=== PATIENT | male | born 1980 | race Caucasian/White ===

== ENCOUNTER 2021-08-11 09:53 | Outpatient (CLI) | payer BC ==
[2021-08-11 10:52] LABS: BUN - BLOOD UREA NITROGEN 22 mg/dL (6-20); CALCIUM 9.2 mg/dL (8.5-10.3); CARBON DIOXIDE - CO2 26 mmol/L (21-32); CHLORIDE 102 mmol/L (101-111); CHOL/HDL RATIO 3.1 (<5.0); CHOLESTEROL 167 mg/dL; CREATININE 0.7 mg/dL (0.6-1.2); GFR - MDRD 126 (>89); GLUCOSE 97 mg/dL (70-100); HDL CHOLESTEROL 54 mg/dL; LDL CHOLESTEROL,CALCULATED 95 mg/dL; LDL/HDL RATIO 1.8 (<3.6); POTASSIUM 4.4 mmol/L (3.5-5.0); SODIUM 137 mmol/L (135-145); TRIGLYCERIDES 88 mg/dL; VLDL CHOLESTEROL 18 mg/dL
== END 2021-08-11 09:54 | disposition home or self-care (01) ==
LOC: LAB 09:53
PROVIDERS: ATTEND Student in an Organized Health Care Education/Training Program
DX: E78.49 Other hyperlipidemia (principal); E55.9 Vitamin D deficiency, unspecified; I10 Essential (primary) hypertension
CPT/HCPCS: 36415; 80048; 80061; 82306; 83721

== ENCOUNTER 2022-09-27 10:27 | Emergency (ER) | payer OTHER, BC ==
[2022-09-27 10:49] VITALS: BP 116/82
--- NOTE | 2022-09-27 10:53 | ED Physician Documentation ---
History of Present Illness - Stated complaint Stated Complaint: EXPOSURE - Chief complaint Chief Complaint: General - History obtained from History obtained from: Patient - History of Present Illness Timing: How many days ago (2) Quality: The patient was exposed to a person in labor and delivery that had pertussis. He is here for postexposure prophylaxis at the direction of the [facility]. Review of Systems Constitutional: denies: Fever, Chills Respiratory: denies: Cough PD PAST MEDICAL HISTORY - Present Medications Home Medications: Ambulatory Orders Medication Instructions Recorded Confirmed Azithromycin [Zithromax] 0 mg PO DAILY #6 tablet 09/27/22 - Allergies Allergies/Adverse Reactions: Allergies Allergy/AdvReac Type Severity Reaction Status Date / Time cefaclor [From [facility]] Allergy Rash Verified 09/27/22 10:46 PD ED PE NORMAL - Vitals Vital signs reviewed: Yes - General General: Alert and oriented X 3, No acute distress, Well developed/nourished Results - Vitals Vitals: Vital Signs - 24 hr 09/27/22 10:46 Temperature 36.6 C Heart Rate 64 Respiratory 16 Rate Blood Pressure 116/82 H O2 Saturation 96 Oxygen O2 Source Room air PD Medical Decision Making - ED course Complexity details: d/w patient ED course: He is here Direction of the [facility] for post exposure prophylaxis to pertussis. Departure - Departure Disposition: 01 Home, Self Care Clinical Impression: Pertussis exposure Condition: Stable Record reviewed to determine appropriate education?: Yes Prescriptions: Azithromycin [Zithromax] 0 mg PO DAILY #6 tablet Comments: Take the Zithromax for 5 days as directed. Take it with food. I sent it to the [facility] pharmacy. This should reduce your chances greatly of developing infection. Discharge Date/Time: 09/27/22 11:08
== END 2022-09-27 11:08 | disposition home or self-care (01) ==
LOC: ED 10:27
DX: Z20.818 Contact with and (suspected) exposure to other bacterial communicable diseases (principal)
CPT/HCPCS: 99281; 99282